=== PATIENT | female | born 1990 | race Caucasian/White ===

== ENCOUNTER 2016-04-23 19:37 | Inpatient (IN) | payer MEDICAID ==
[~2016-04-23 19:37] MED LIST: Dinoprostone* 10 MG VAG.SUPP VAGINAL ONE
[2016-04-24] MEDS ORDERED: Oxytocin in LR* 20 UNITS/1,000 ML BAG IVPB SCH ×2 (10:00→22:09)
[2016-04-24 10:03] LABS: Hematocrit 32 % (35-47); Hemoglobin 10.6 g/dl (12.0-16.0); Mean Corpuscular HGB Conc 33 g/dl (31-36); Mean Corpuscular Hemoglobin 27 pg (27-31); Mean Corpuscular Volume 83 fL (80-97); Mean Platelet Volume 8 um3 (7.4-10.4); Red Blood Count 3.87 10^6/ul (4.0-5.4); Red Cell Distribution Width 13 % (10.5-15); White Blood Count 13.5 10^3/ul (3.5-10.8)
[2016-04-24] MEDS ORDERED: fentaNYL* 50 MCG/ML 2 ML VIAL (100 MCG VIAL) ONE (19:45)
[2016-04-24] MEDS ORDERED: EPHEDrine (Pressors)* 50 MG/ML VIAL IV PUSH PRN (20:04)
[2016-04-24] MEDS ORDERED: Phenylephrine IV* 40 MCG/ML 10 ML SYRINGE IV PUSH PRN (20:04)
[2016-04-24] MEDS ORDERED: Sodium Citrate/Citric Acid* 15 ML UDC PO PRN (20:04)
[2016-04-24] MEDS ORDERED: Famotidine TAB* 20 MG PO PRN (20:04)
[2016-04-24] MEDS ORDERED: OBEPIDURAL* 250 ML EPIDURAL SCH (21:00)
[2016-04-24] MEDS ORDERED: oxyCODONE/Acetamin 5/325 MG* TAB PO PRN (22:06)
[2016-04-24] MEDS ORDERED: Glycerin ADULT SUPP PR PRN (22:06)
[2016-04-24] MEDS ORDERED: Witch Hazel PAD* JAR TOPICAL PRN (22:06)
[2016-04-24] MEDS: Ibuprofen TAB* 600 MG PO PRN (23:14)
[2016-04-25] MEDS: Acetaminophen TAB* 325 MG PO PRN ×3 (03:06→14:14)
[2016-04-25] MEDS: Ibuprofen TAB* 600 MG PO PRN ×3 (06:19→19:53)
[2016-04-25] MEDS: Docusate CAP* 100 MG PO SCH ×3 (08:42→19:53)
[2016-04-25 09:43] LABS: Hematocrit 31 % (35-47); Hemoglobin 9.9 g/dl (12.0-16.0); Mean Corpuscular HGB Conc 32 g/dl (31-36); Mean Corpuscular Hemoglobin 27 pg (27-31); Mean Corpuscular Volume 84 fL (80-97); Mean Platelet Volume 8 um3 (7.4-10.4); Red Blood Count 3.66 10^6/ul (4.0-5.4); Red Cell Distribution Width 13 % (10.5-15); White Blood Count 17.7 10^3/ul (3.5-10.8)
[2016-04-25] MEDS: Ferrous Gluconate TAB* 324 MG TAB PO SCH ×2 (10:00→19:53)
[2016-04-26] MEDS: Acetaminophen TAB* 325 MG PO PRN ×2 (00:53→07:56)
[2016-04-26] MEDS: Ibuprofen TAB* 600 MG PO PRN (04:40)
[2016-04-26 07:47] VITALS: BP 117/63
[2016-04-26] MEDS: Ferrous Gluconate TAB* 324 MG TAB PO SCH (07:56)
[2016-04-26] MEDS: Docusate CAP* 100 MG PO SCH (07:56)
== END 2016-04-26 10:18 | disposition home or self-care (01) | DRG 560 ==
LOC: MCHOBOUT 19:37 → MCHOB 19:43
PROVIDERS: ADMIT Midwife; ATTEND Midwife
PROC: 10E0XZZ Delivery of Products of Conception, External Approach (ICD-10-PCS; principal; 2016-04-24)
PROC: 10907ZC Drainage of Amniotic Fluid, Therapeutic from Products of Conception, Via Natural or Artificial Opening (ICD-10-PCS; 2016-04-24)
DX: O80 Encounter for full-term uncomplicated delivery (principal); Z88.2 Allergy status to sulfonamides; Z3A.39 39 weeks gestation of pregnancy; Z37.0 Single live birth
CPT/HCPCS: 36415; 85025; 85027; 86850; 86900; 86901; A9270-GY; J3010

== ENCOUNTER 2016-09-29 08:24 | Inpatient (IN) | payer MEDICAID, OTHER ==
--- NOTE | 2016-09-29 09:29 | RAD ---
Indication: Left fourth finger injury. 3 views of left fourth digit demonstrates flexion deformity at the proximal interphalangeal joint. Underlying fracture is not excluded. IMPRESSION: Flexion deformity proximal interphalangeal joint fourth digit.
--- NOTE | 2016-09-29 09:46 | ED ---
Upper Extremity Pain - HPI Summary HPI Summary: 25F presents with left ring finger pain. She [facility] an [facility] yesterday when she went to move a branch when she was mowing and it wouldn't move. She states she got a silver to the area and is unsure if she got it out. She had full ROM of her finger last night. This morning she has swelling along her flexor tendon and is tender there. There is no redness, warmth to the area. She is only able to partial flex and extend the joint. She has pain down the length of the finger. She is unsure if the sliver is still there. 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 - History of Current Complaint Chief Complaint: EDExtremityUpper Stated Complaint: LT HAND / FINGER COMPLAINT Time Seen by Provider: 09/29/16 08:39 - Allergies/Home Medications Allergies/Adverse Reactions: Allergies Allergy/AdvReac Type Severity Reaction Status Date / Time Sulfa Drugs Allergy Unknown Unknown Verified 09/29/16 08:43 Reaction Details PMH/Surg Hx/FS Hx/Imm Hx Endocrine/Hematology History: Denies: Hx Anticoagulant Therapy Cardiovascular History: Denies: Hx Hypertension Infectious Disease History: No Infectious Disease History: Denies: Traveled Outside the [place] in Last 30 Days - Family History Known Family History: Negative: Cardiac Disease - Social History Alcohol Use: None Substance Use Type: Reports: None Smoking Status (MU): Never Smoked Tobacco Review of Systems Negative: Fever Negative: Chest Pain Negative: Shortness Of Breath Positive: Edema - left ring finger All Other Systems Reviewed And Are Negative: Yes Physical Exam Triage Information Reviewed: Yes Vital Signs On Initial Exam: Initial Vitals Temp Pulse Resp BP Pulse Ox 97.2 F 97 16 81/54 97 09/29/16 08:27 09/29/16 08:27 09/29/16 08:27 09/29/16 08:27 09/29/16 08:27 Vital Signs Reviewed: Yes Appearance: Positive: Well-Appearing Skin: Positive: Warm, Dry Head/Face: Positive: Normal Head/Face Inspection Eyes: Positive: Normal, Conjunctiva Clear Respiratory/Lung Sounds: Positive: Clear to Auscultation, Breath Sounds Present Cardiovascular: Positive: Normal, RRR Musculoskeletal: Positive: Other - capillary refill<2 secs, good pulses, tender along flexor tendon with edema present there. no erythema present. pain with passive extension. unable to full extend and flex finger Diagnostics - Vital Signs Vital Signs Temp Pulse Resp BP Pulse Ox 09/29/16 08:27 97.2 F 97 16 81/54 97 - Laboratory Result Diagrams: 09/29/16 10:05 09/29/16 10:05 Lab Statement: Any lab studies that have been ordered have been reviewed, and results considered in the medical decision making process. Course/Dx - Course Course Of Treatment: 25F presents with left ring finger pain. She [facility] an [facility] yesterday when she went to move a branch when she was mowing and it wouldn't move. She states she got a silver to the area and is unsure if she got it out. She had full ROM of her finger last night. This morning she has swelling along her flexor tendon and is tender there. There is no redness, warmth to the area. She is only able to partial flex and extend the joint. She has pain with passive extension. xray normal. discussed with dr wynn who will see in ED. dr Wynn concerned for early flexor tenosynovitis and will take to OR - Diagnoses Differential Diagnosis/HQI/PQRI: Positive: Strain, Sprain, Other - flexor tenosynovitis Provider Diagnoses: Flexor tenosynovitis of finger - Physician Notifications Discussed Care of Patient With: Dr wynn Time Discussed With Above Provider: 09:52 - will see in ED Discharge - Discharge Plan Condition: Good Disposition: ADMITTED TO [facility]
[2016-09-29 10:13] LABS: Hematocrit 42 % (35-47); Hemoglobin 13.5 g/dl (12.0-16.0); Mean Corpuscular HGB Conc 32 g/dl (31-36); Mean Corpuscular Hemoglobin 27 pg (27-31); Mean Corpuscular Volume 84 fL (80-97); Mean Platelet Volume 9 um3 (7.4-10.4); Red Blood Count 4.98 10^6/ul (4.0-5.4); Red Cell Distribution Width 14 % (10.5-15); White Blood Count 9.1 10^3/ul (3.5-10.8)
[2016-09-29 10:28] LABS: Albumin 4.6 g/dL (3.2-5.2); BUN/Creatinine Ratio 17.6 (8-20); EGFR African American 134.5 (>60); EGFR Non-African American 104.6 (>60); Total Bilirubin 0.5 mg/dL (0.2-1.0); Total Protein 7.6 g/dL (6.4-8.9)
[2016-09-29] MEDS ORDERED: Morphine INJ* 2 MG/ML 1 ML SYRINGE IV PRN (11:44)
[2016-09-29] MEDS ORDERED: diPHENhydraMINE IV* 50 MG/ML 1 ml VIAL (BENADRYL) IV PRN (11:44)
[2016-09-29] MEDS ORDERED: Ondansetron TAB* 4 MG PO PRN (11:44)
[2016-09-29] MEDS ORDERED: oxyCODONE/Acetamin 5/325 MG* TAB PO PRN (11:44)
[2016-09-29 12:21] LABS: Manual Entry Verification AS; UR Preg Internal Control QC Line Present; UR Preg Kit Lot# 7010135
[2016-09-29] MEDS ORDERED: ceFAZolin 2 GM PREMIX(*) 2 GM/50 ML BAG IVPB ONE (12:33)
[2016-09-29] MEDS ORDERED: Metoclopramide IV* 5 MG/ML 2 ML VIAL ONE (12:51)
[2016-09-29] MEDS ORDERED: Famotidine IV* 10 MG/ML 2 ML (20 mg) ONE (12:51)
--- NOTE | 2016-09-29 13:32 | HP ---
HISTORY AND PHYSICAL: DATE OF ADMISSION: 09/29/16 REASON FOR ADMISSION: Left ring finger infected flexor tenosynovitis. 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 The patient has never had any difficulties with that left ring finger previously. On the night of 09/28/16 at approximately 6 p.m., the patient was clearing some branches and a small piece of branch or twig got stuck in the patient's left ring finger. Patient removed it. She was unsure if it was a jabari or what type of plant anatomy it was. The patient described the castanon as one bearing small red berries. Several hours later, the patient noticed some swelling and pain in a flexed posture of that left ring finger. Patient was concerned enough that she almost went to [facility] the night of the injury. Instead she waited until this morning. Patient's pain and swelling increased and she noticed some skin erythema. Therefore, the patient presented to the emergency department. There were no other injuries associated with the event on 09/28/16. Patient describes no fever, sweats, chills. No numbness or tingling left ring finger or elsewhere. No other joint pain. PAST MEDICAL HISTORY: Kidney infections, unknown source, not necessarily related to the urinary tract according to the patient. PAST SURGICAL HISTORY: Appendectomy, tonsillectomy. MEDICATIONS: None. ALLERGIES: SULFA (assumed, patient has a significant family history of SULFA allergies and so she has avoided SULFA drugs). REVIEW OF SYSTEMS: No fever, sweats, chills. No other joint pain. Denies any drainage from the area where the foreign body had been present. PHYSICAL EXAMINATION GENERAL: No acute distress, alert and oriented x3, appropriate mood and affect , appropriate dress and hygiene. Gait was not assessed as the patient was sitting with her 5-month-old in her lap. Well coordinated bilateral upper and lower extremities. Patient is nontoxic appearing. She is comfortable. Patient has an older child roaming around the emergency department room and a 5- month-old sleeping comfortably on her lap. VITAL SIGNS: Temperature 97.3 degrees Fahrenheit, pulse 87, blood pressure 100/ 56, respirations 15, and O2 sat 99% on room air. EXTREMITIES: Examination of the patient's left upper extremity reveals no palpable lymphadenopathy, axilla or epitrochlear. No lymphangitic streaking. Left ring finger exam demonstrates visible soft tissue swelling about the ring finger overlying the proximal and middle phalanges of the left ring finger. The ring finger is clearly in a prominently flexed posture. Positive pain with passive extension of that finger. Tenderness to palpation along the flexor tendon sheath from just proximal to A0 to the level of the DIP joint flexor crease, skin. I would not describe the soft tissue swelling as fusiform of the left ring finger. There is some faint erythema now about the volar, radial and ulnar aspect of the skin overlying the proximal phalanx of that left ring finger. There is a barely visible punctate hole in the skin on the volar surface of the finger at the level of the MP flexor skin crease, more ulnar than radial. No drainage. No pain with passive range of motion of the metacarpophalangeal joint. I repeated this multiple times and no discomfort whatsoever. NEURO: Neurovascularly intact distally. Sensation fully intact radial and ulnar aspect of the left ring finger and cap refill less than 2 seconds. LABORATORY DATA: White blood cell count 9.1. CRP 7.23. INR is 0.91. IMAGING: X-rays of the left ring finger, three, were obtained on the date of admission. X-rays show no fracture, dislocation, significant degenerative changes or metallic foreign body. ASSESSMENT: Left ring finger flexor tenosynovitis, infected, early. PLAN: 1. I discussed the diagnosis with the patient. Although she is afebrile with normal white count and a just slightly elevated CRP, her physical exam is consistent with infected flexor tenosynovitis and the aggressive trajectory of her symptoms starting with the injury just over 12 hours ago, suspects a more aggressive infection. 2. We briefly discussed nonoperative versus operative management. Some sources do describe treatment of early flexor tenosynovitis with IV antibiotics only. However, the irrigation and debridement is a more thorough and aggressive solution to eradicate infection and prevent long-term damage to the flexor tendons. 3. The patient's last meal was coffee and cereal at 6 a.m. this morning. Therefore, we will wait 6 hours until 2 p.m. to perform the procedure. 4. The patient will be admitted to me. She will be continued NPO. We will hold IV antibiotics for now in order to obtain most accurate intraoperative cultures. 5. To the operating room for open left ring finger flexor tendon sheath irrigation, incision and debridement. Two-incision technique. 6. I asked for the emergency department staff to obtain an ultrasound overlying the skin compromise to look for a non-metallic foreign body, which I could remove at the time of surgery. 7. My plan is for IV antibiotics intraoperatively and postoperatively. The patient will be seen by Infectious Disease on postoperative day 1 in the morning , 09/30/16, to establish an antibiotic regimen, IV versus oral, moving forward. I discussed with the patient some initial timeline for her return to work and for wearing of the splint. 8. I will obtain a surgical consent and discussed benefits, risks, and potential complications, principally nerve or blood vessel injury, recurrence of infection, and flexor tendon rupture. [id number] #: [id number] MTDD
[2016-09-29] MEDS ORDERED: Lidocaine 2% PF * 5 ML VIAL ONE (13:38)
[2016-09-29] MEDS ORDERED: Propofol* 10 MG/ML 20 ML BTL IV PUSH ONE (13:38)
[2016-09-29] MEDS ORDERED: fentaNYL* 50 MCG/ML 2 ML VIAL (100 MCG VIAL) ONE ×2 (13:53→14:26)
[2016-09-29] MEDS ORDERED: Vancomycin(*) 1,000 MG in NS 0.9% 250 ML* 250 ML IVPB ONE (14:00)
[2016-09-29] MEDS ORDERED: fentaNYL* 50 MCG/ML 2 ML VIAL (100 MCG VIAL) IV PRN (14:01)
[2016-09-29] MEDS ORDERED: oxyCODONE TAB* 5 MG TAB PO PRN (14:01)
[2016-09-29] MEDS ORDERED: PROCHLORPERAZINE INJ 5 MG/ML 2 ML VIAL IV PRN (14:01)
[2016-09-29] MEDS ORDERED: HYDROcodone/ACETAMIN 5-325 MG* 1 TAB PO PRN (14:01)
--- NOTE | 2016-09-29 14:03 | RAD ---
Indication: Evaluate for foreign body. Real-time sonography of the left fourth digit is reviewed. There is no evidence of foreign body identified in the region of the fourth digit. IMPRESSION: No foreign body is identified.
[2016-09-29] MEDS ORDERED: Bupivacaine 0.5% SDV PF* 30 ML VIAL ONE (14:26)
[2016-09-29] MEDS ORDERED: Ketorolac INJ* 30 MG/ML 1 ML VIAL ONE (14:48)
[2016-09-29] MEDS ORDERED: PROCHLORPERAZINE INJ 5 MG/ML 2 ML VIAL ONE (15:44)
[2016-09-29] MEDS: NS 0.9% 1000 ML* 1,000 ML IV SCH (16:56)
[2016-09-29] MEDS ORDERED: Ondansetron INJ* 2 MG/ML VIAL ONE (18:05)
[2016-09-29] MEDS: Acetaminophen TAB* 325 MG PO PRN (18:11)
--- NOTE | 2016-09-30 00:31 | OP ---
DATE OF OPERATION: 09/28/16 - ROOM #332 DATE OF : 88 SURGEON: Filiberto Cunha MD CLEANING PROFESSIONAL: CLAU Lee ANESTHESIOLOGIST: Timbo Lorenzo MD ANESTHESIA: General anesthesia, local anesthesia. PRE-OP DIAGNOSIS: Left ring finger flexor tendon sheath infection. POST-OP DIAGNOSIS: Left ring finger flexor tendon sheath infection. OPERATIVE PROCEDURE: Incision, irrigation, and debridement, left ring finger flexor tendon sheath. IV FLUIDS: 1250 cc lactated Ringer's. ANTIBIOSIS: 1 g vancomycin, given after cultures were obtained. TOURNIQUET TIME: 29 minutes at 250 mmHg. COMPLICATIONS: None. ESTIMATED BLOOD LOSS: Minimal. SPECIMENS: Culture swabs x2, aerobic and anaerobic. 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 While the patient did not have fever, sweats, or chills and had a normal white blood cell count and a CRP of 7, she had 3 and then 4 of Kanavel's sign. She had a left ring finger in a flexed posture , pain with passive extension of the left ring finger, tenderness to palpation along the flexor tendon sheath. At my second exam when I went to consent her, she had more fusiform swelling. I held the antibiotics IV for 3 hours until the patient was appropriate for surgery, at that point 6 hours after having eaten and drank. DESCRIPTION OF PROCEDURE: Preoperative written consent. We had discussed benefits, risks, and potential complications of procedure in detail. I said expectations for the patient requiring IV antibiotics postoperatively and her being required to stay inhouse until we saw some clinical improvement that would make us comfortable switching her to oral antibiotics. The operative finger was marked in preoperative holding. The patient was taken back to the operating room and maintained on the stretcher. She was sedated and LMA was placed. A hand table was attached. Tourniquet was placed around the upper arm, left. The left upper extremity was prepped and draped. Surgical time-out was performed. I elevated tourniquet without Esmarch. Started skin incision and there was some bleeding. I, therefore, dropped the tourniquet, applied the Esmarch and reelevated the tourniquet. The total tourniquet time initially before I dropped it was less than 1 minute. With the tourniquet reelevated, I continued my longitudinal incision overlying the A1 roxanne in the volar hand. Approximately 1 to 1.5 cm skin incision was made. Dissection through subcutaneous tissue was done with scissors and then done with Ragnell retractors , using them as dissection tools. I then placed a cricket retracting medial and lateral and Ragnell's proximal and distal. Sponge was used to clean off the flexor tendon sheath. Excellent view of flexor tendon sheath. I viewed the A1 roxanne and the A2 roxanne. At this point, there was no pus or foreign body visible. Incised A1 flexor tendon sheath with a 15 blade. I followed this by releasing it proximal and then distal with dissection scissors. As I did this release, pus emanated from the flexor tendon sheath. I got 2 sets of culture swabs, aerobic and anaerobic of this fluid. After cultures had been obtained, vancomycin 1 g IV was started. With the bulb syringe, I irrigated the surgical field and passively flexed and extended the finger to milk some of that pus out. Was satisfied with my proximal and distal release of A1 roxanne. Removed instruments from the surgical wound. Next, I turned my attention towards the distal fingertip, left ring finger. I made a midline volar incision from the DIP skin flexion crease, approximately 1 to 1.5 cm in length running distally. A 15 blade was used to make the skin incision. Spreading dissection using scissors down to tendon. The flexor tendon was well visible and flexor tendon sheath itself was not significantly thick at this level. I made sure to release the flexor tendon sheath just proximal to the wound, including part of the A5 roxanne. Went back to the first incision and inserted an 18-gauge Angiocath. Connected that to tubing and 2 syringes, 30 cc, and I irrigated through that proximal wound. Significant amount of the fluid was leaving through the distal surgical incision site, satisfying my requirement that the fluid be flushed all the way through the tendon sheath. Some of the fluid also backed out proximally, as expected. I flushed several 100 cc through that 18-gauge short angiocatheter. Then, I switched it up and I used a longer 16-gauge angiocatheter and continued irrigating. Total volume of irrigant used was at least 250 cc. I did not explore the site of the skin puncture, at the level of the MP flexion crease as it did essentially completely healed. Deep to that, I irrigated well and never saw a clear foreign body. I did not see clear puncture through the flexor tendon sheath or any flexor pulling. Irrigation of proximal wound with bulb syringe. Wounds were dried. Some packing with Iodoform, short amount was placed in the proximal surgical wound. A simple skin stitch using monofilament and nylon 4-0 suture was placed, one in the proximal wound and one in the distal wound. This affected a loose closure, which was my intention. The tourniquet was dropped. There was a tiny amount of bleeding, but not significant from each wound. Xeroform was placed over both surgical incision closures followed by 2x2 's, followed by Kerlix, followed by narrow Coban. Drapes were taken down. A one-step volar splint with the hand in a position of comfort and the fingers fully extended was placed with an Prince bandage overwrap. The patient was awakened and extubated and transferred to the PACU. DISPOSITION: The patient will receive vancomycin 1 g IV q.12 hours. I am okay with the first dose being at 6 a.m. tomorrow morning, first dose postoperative for scheduling purposes. The patient can receive pain medication as needed. We will await culture sensitivities and adjust antibiotics appropriately. I had spoken with Dr. Ayers of infectious disease service preoperatively and he had requested vancomycin rather than Ancef. I spoke with the patient's and described the procedure and reiterated that I believe that the patient would be an inpatient for at least 2 to 3 days postoperatively, so that we have culture sensitivities and the patient's physical exam improve sufficiently, so that we are comfortable sending her home on oral antibiotics. On postoperative day 2, I will likely take down the splint , remove the packing, and let the patient start moving that hand. [id number] #: [id number] MTDD
[2016-09-30] MEDS: Ondansetron INJ* 2 MG/ML VIAL IV PRN ×3 (01:51→17:01)
[2016-09-30] MEDS: NS 0.9% 1000 ML* 1,000 ML IV SCH ×2 (01:51→14:42)
[2016-09-30] MEDS: Vancomycin(*) 1,000 MG in NS 0.9% 250 ML* 250 ML IVPB SCH ×2 (05:36→18:55)
[2016-09-30 06:51] LABS: Hematocrit 36 % (35-47); Hemoglobin 11.8 g/dl (12.0-16.0); Mean Corpuscular HGB Conc 33 g/dl (31-36); Mean Corpuscular Hemoglobin 28 pg (27-31); Mean Corpuscular Volume 83 fL (80-97); Mean Platelet Volume 9 um3 (7.4-10.4); Red Blood Count 4.26 10^6/ul (4.0-5.4); Red Cell Distribution Width 14 % (10.5-15)
[2016-09-30] MEDS: Acetaminophen TAB* 325 MG PO PRN ×2 (08:56→17:00)
--- NOTE | 2016-09-30 09:30 | PN ---
Progress Note - Progress Note Date of Service: 09/30/16 SOAP: Subjective: []Patient seen at bedside. c/o mild to moderate finger pain this am. Splint feeling restrictive on the rest of the hand. Denies paresthesias of any digits. Denies N/V. Objective: [] Vital Signs Temp 98.0 F 09/30/16 07:35 Pulse 85 09/30/16 07:35 Resp 16 09/30/16 08:31 BP 103/61 09/30/16 07:35 Pulse Ox 99 09/30/16 07:35 Intake & Output 09/29/16 09/30/16 09/30/16 18:59 06:59 18:59 Intake Total 2404 1375 Output Total 200 1675 Balance 2204 -300 Weight 170 lb Intake: IV Fluids 2404 270 LR 1250 NS 250ML, Vancomycin 250 1000MG IVPB 55 Oral 1050 Output: Urine 200 1175 Emesis 500 Other: Estimated Blood Loss MIN Comment Laboratory Results - last 24 hr 09/29/16 09/29/16 09/29/16 10:05 10:05 10:05 WBC 9.1 RBC 4.98 Hgb 13.5 Hct 42 MCV 84 MCH 27 MCHC 32 RDW 14 Plt Count 238 MPV 9 Neut % (Auto) 62.7 Lymph % (Auto) 29.2 [place] % (Auto) 5.7 Eos % (Auto) 1.1 Baso % (Auto) 1.3 Absolute Neuts (auto) 5.7 Absolute Lymphs (auto) 2.7 Absolute Monos (auto) 0.5 Absolute Eos (auto) 0.1 Absolute Basos (auto) 0.1 Absolute Nucleated RBC 0 Nucleated RBC % 0 INR (Anticoag Therapy) 0.91 Sodium 135 Potassium 4.0 Chloride 107 Carbon Dioxide 23 Anion Gap 5 BUN 12 Creatinine 0.68 Est GFR ( Amer) 134.5 Est GFR (Non-Af Amer) 104.6 BUN/Creatinine Ratio 17.6 Glucose 89 Lactic Acid Calcium 10.0 Total Bilirubin 0.50 AST 23 ALT 35 Alkaline Phosphatase 90 C-Reactive Protein C-React Prot High Sens 7.23 Total Protein 7.6 Albumin 4.6 Globulin 3.0 Albumin/Globulin Ratio 1.5 Urine Test 09/29/16 09/29/16 09/30/16 10:05 12:15 06:29 WBC 6.0 RBC 4.26 Hgb 11.8 L Hct 36 MCV 83 MCH 28 MCHC 33 RDW 14 Plt Count 194 MPV 9 Neut % (Auto) Lymph % (Auto) [place] % (Auto) Eos % (Auto) Baso % (Auto) Absolute Neuts (auto) Absolute Lymphs (auto) Absolute Monos (auto) Absolute Eos (auto) Absolute Basos (auto) Absolute Nucleated RBC Nucleated RBC % INR (Anticoag Therapy) Sodium Potassium Chloride Carbon Dioxide Anion Gap BUN Creatinine Est GFR ( Amer) Est GFR (Non-Af Amer) BUN/Creatinine Ratio Glucose Lactic Acid 0.8 Calcium Total Bilirubin AST ALT Alkaline Phosphatase C-Reactive Protein C-React Prot High Sens Total Protein Albumin Globulin Albumin/Globulin Ratio Urine Test Negative 09/30/16 06:29 WBC RBC Hgb Hct MCV MCH MCHC RDW Plt Count MPV Neut % (Auto) Lymph % (Auto) [place] % (Auto) Eos % (Auto) Baso % (Auto) Absolute Neuts (auto) Absolute Lymphs (auto) Absolute Monos (auto) Absolute Eos (auto) Absolute Basos (auto) Absolute Nucleated RBC Nucleated RBC % INR (Anticoag Therapy) Sodium Potassium Chloride Carbon Dioxide Anion Gap BUN Creatinine Est GFR ( Amer) Est GFR (Non-Af Amer) BUN/Creatinine Ratio Glucose Lactic Acid Calcium Total Bilirubin AST ALT Alkaline Phosphatase C-Reactive Protein < 1.00 C-React Prot High Sens Total Protein Albumin Globulin Albumin/Globulin Ratio Urine Test Microbiology 09/29/16 15:30 Gram Stain - Final Finger - Ring Left Left UE volar splint 2nd-5th digits, left ring finger dressed with gauze and coban. Sensation intact throughout. Assessment: []s/p I&D left ring finger flexor tenosynovitis POD #1 Plan: []Splinting and IV Vanco 1 gm q12 h per Dr. uCnha ? Home 10/01
[2016-09-30] MEDS: Ibuprofen TAB* 800 MG PO SCH ×2 (11:42→18:54)
[2016-10-01] MEDS: Ibuprofen TAB* 800 MG PO SCH ×3 (00:40→11:27)
[2016-10-01] MEDS: NS 0.9% 1000 ML* 1,000 ML IV SCH (02:32)
[2016-10-01 06:06] LABS: Hematocrit 36 % (35-47); Hemoglobin 11.8 g/dl (12.0-16.0); Mean Corpuscular HGB Conc 33 g/dl (31-36); Mean Corpuscular Hemoglobin 27 pg (27-31); Mean Corpuscular Volume 83 fL (80-97); Mean Platelet Volume 8 um3 (7.4-10.4); Red Blood Count 4.28 10^6/ul (4.0-5.4); Red Cell Distribution Width 14 % (10.5-15); White Blood Count 4.7 10^3/ul (3.5-10.8)
[2016-10-01] MEDS: Vancomycin(*) 1,000 MG in NS 0.9% 250 ML* 250 ML IVPB SCH (06:11)
--- NOTE | 2016-10-01 07:27 | PN ---
Progress Note - Progress Note Date of Service: 10/01/16 SOAP: Subjective: No pain, numbess, or tingling Objective: Left ring finger - NVID - decreased swelling, erythema - tolerated full passive extension - only trace ache with palpation of flexor tendon along hand and finger Microbiology 09/29/16 15:30 Finger - Ring Left Gram Stain - Final 09/29/16 15:30 Misc Source (See Comment) - Finger Anaerobic Culture - Preliminary No Growth Day 1 09/29/16 15:30 Finger - Ring Left Wound Culture - Preliminary No Growth Day 1 Selected Entries 10/01/16 03:57 Temperature 97.6 F Pulse Rate 64 Respiratory 16 Rate Blood Pressure 103/56 (mmHg) O2 Sat by Pulse 99 Oximetry Laboratory Tests 09/29/16 09/30/16 09/30/16 10:05 06:29 06:29 WBC 9.1 6.0 C-Reactive Protein < 1.00 10/01/16 10/01/16 05:47 05:47 WBC 4.7 C-Reactive Protein 19.99 H Assessment: POD 2 I&D L ring finger flexor tendon sheath Plan: - Change her to Ancef 1gm IV q 8 hrs given NGTD, no MRSA - I will try to discuss with Armen, but if continued improvement on Ancef today, possible discharge this afternoon on PO abx - Warm sopay soak x 15 minutes then nursing will redress wound with DSD - I removed packing from proximal incision - Told patient to move fingers to prevent stiffness
[2016-10-01] MEDS: ceFAZolin VIAL(*) 1 GM in NS 0.9% 50 ML* 50 ML IVPB SCH ×2 (08:16→15:51)
--- NOTE | 2016-10-01 14:10 | DS ---
DISCHARGE SUMMARY: DATE OF ADMISSION: 09/29/16 DATE OF DISCHARGE: 10/01/16 ATTENDING PHYSICIAN: Filiberto Cunha MD ADMISSION DIAGNOSIS: Left ring finger flexor tendon sheath infection. DISCHARGE DIAGNOSIS: Left ring finger flexor tendon sheath infection. SURGERY PERFORMED: Incision, irrigation and debridement, left ring finger flexor tendon sheath. HOSPITAL COURSE: The patient is a 25-year-old female who is right handed, who presented to the emergency department on the morning of 09/29/16 with left ring finger pain, swelling and inability to extend her finger actively. She injured her finger while trying to move a branch out of her way while mowing a lawn on the evening of 09/28/16. Due to the fact that she had a significant worsening of her symptoms in a short time and was unable to extend her finger actively and had significant flexor tendon pain, Dr. Cunha felt that it was best that she have the area incised, evaluated and cleaned out in the operating room. She elected to proceed and was taken to the operating room for the aforementioned procedure on the date of 09/29/16. She tolerated the procedure well and left the operating room in stable condition. Postoperatively, she was placed on IV vancomycin and was then changed to IV Ancef as her cultures showed no growth of MRSA. She had no postoperative complications and had these fingers soaked twice daily with warm soapy water and did see improvement postoperative day #1. It was felt that she was stable orthopedically for discharge to home on 10/01/16 in the afternoon after receiving her second dose of IV Kefzol. CONDITION ON DISCHARGE: The patient is afebrile. Her vital signs are stable. Her left fourth finger is improved with less tenderness over the flexor tendon and ability to passively have the finger extended. Her sensation and circulation are grossly intact. PLAN: Discharge to home. The patient does not do well with narcotic pain medications and would like to only take Tylenol or ibuprofen, which she has both at home. We recommend Keflex 500 mg p.o. four times a day x2 weeks. She will follow up with Dr. Cunha in the office on Wednesday10/05/16 for evaluation. She will continue with soaks in warm soapy water twice daily and will apply a light dressing to the finger to protect the incisions. If she has increased pain, increased swelling, redness, drainage, fever, chills, the office will be contacted prior to her scheduled appointment on 10/05/16. CLAU LOONEY [id number]/[facility] #: [id number] TORI
[2016-10-01 15:30] VITALS: BP 104/59
== END 2016-10-01 16:35 | disposition home or self-care (01) | DRG 316 ==
LOC: ED 08:24 → SSU 11:10 → OBSVTOIN 09-30 10:53
PROVIDERS: ADMIT Orthopaedic Surgery; ATTEND Orthopaedic Surgery
PROC: 0JDK0ZZ Extraction of Left Hand Subcutaneous Tissue and Fascia, Open Approach (ICD-10-PCS; principal; 2016-09-29 14:00)
DX: M65.142 Other infective (teno)synovitis, left hand (principal); Z88.2 Allergy status to sulfonamides
CPT/HCPCS: 36415; 73140; 80053; 81025; 83605; 85025; 85027; 85610; 86140; 86141; 87070; 87073; 87205; 93005; A9270-GY; G0378; J0690; J0780; J1885; J2405; J2704; J3010; J3370

== ENCOUNTER 2016-10-05 15:16 | Emergency (ER) | payer OTHER ==
[2016-10-05 16:45] LABS: Hematocrit 38 % (35-47); Hemoglobin 12.4 g/dl (12.0-16.0); Mean Corpuscular HGB Conc 33 g/dl (31-36); Mean Corpuscular Hemoglobin 27 pg (27-31); Mean Corpuscular Volume 83 fL (80-97); Mean Platelet Volume 8 um3 (7.4-10.4); Red Blood Count 4.58 10^6/ul (4.0-5.4); Red Cell Distribution Width 13 % (10.5-15); White Blood Count 12.6 10^3/ul (3.5-10.8)
[2016-10-05] MEDS ORDERED: HYDROcodone/ACETAMIN 5-325 MG* 1 TAB PO ONE (16:55)
[2016-10-05] MEDS ORDERED: Ketorolac INJ* 60 MG/2 ML VIAL IM ONE (16:55)
[2016-10-05 16:56] LABS: BUN/Creatinine Ratio 11.3 (8-20); Calcium 9.1 mg/dL (8.6-10.3); EGFR Non-African American 99.5 (>60); Potassium 3.5 mmol/L (3.5-5.0)
[2016-10-05 16:57] LABS: UR Preg Internal Control QC Line Present
[2016-10-05] MEDS ORDERED: Ketorolac INJ* 30 MG/ML 1 ML VIAL ONE (17:11)
[2016-10-05] MEDS ORDERED: Ketorolac INJ* 30 MG/ML 1 ML VIAL IV PUSH ONE ×2 (17:14→22:00)
[2016-10-05] MEDS ORDERED: Ondansetron INJ* 2 MG/ML VIAL IV ONE ×2 (17:15→21:29)
[2016-10-05] MEDS: NS 0.9% 1000 ML* 2,000 ML IV ONE (18:03)
[2016-10-05 18:32] LABS: Urine Bilirubin Negative (Negative); Urine Glucose Negative (Negative); Urine Nitrite Negative (Negative)
[2016-10-05 18:52] LABS: Urine Bacteria Absent (Absent)
[2016-10-05 19:04] LABS: Albumin 4.2 g/dL (3.2-5.2); Direct Bilirubin 0.1 mg/dL (0.03-0.18); Globulin 2.7 g/dL (2-4); Indirect Bilirubin 0.4 mg/dL (0.3-1.0); Total Bilirubin 0.5 mg/dL (0.2-1.0); Total Protein 6.9 g/dL (6.4-8.9)
--- NOTE | 2016-10-05 20:35 | RAD ---
CLINICAL HISTORY: Bilateral flank pain. Surgical history includes appendectomy. COMPARISON: Pelvic ultrasound dated January 28, 2011 TECHNIQUE: Noncontrast CT examination of the abdomen and pelvis from the lung bases through the initial tuberosities. FINDINGS: VISUALIZED LUNG BASES: The visualized lung bases are grossly clear. There is no pleural effusion. ABDOMEN AND PELVIS: Evaluation of the solid organs and vasculature is limited without intravenous contrast. The liver, pancreas and adrenal glands are grossly normal in appearance. The gallbladder is normal. The otherwise normally attenuating spleen measures 13.5 cm in greatest axial dimension. At the posterior aspect of the left renal cortex (image 45 of 201) there is a 5 mm calcification. The kidneys are otherwise normal in appearance without focal mass, calcification or signs of hydronephrosis. The small and large bowel are not distended. Surgical material seen in the base of the cecum consistent with the patient's surgical history of appendectomy. There is no retroperitoneal adenopathy. On the coronal plane images there are top normal and mildly enlarged mesenteric lymph nodes measuring up to 1 cm in short axis diameter (for example coronal image 32). The pelvic viscera is normal in appearance. The abdominal aorta and iliac arteries are normal in course and diameter. There are no sinister bone lesions. Overlying the subcutaneous fat at the superior right lateral gluteal region (axial image 118 of 201) there is an 8 mm focus of induration with a smaller focus of low-attenuation, either pure fat or air. IMPRESSION: 1. At the posterior left renal cortex there is a 5 mm calcification but no calculi are seen in either collecting system, nor is there any sign of hydronephrosis. 2. Diffuse top normal and mildly enlarged mesenteric lymph nodes that do not exhibit any specific focality and mild splenomegaly in an otherwise normal-appearing spleen. Please correlate to signs and symptoms of systemic infection or other diffuse reactive process. 3. Mixed attenuation 8mm focus in the subcutaneous tissue overlying the lateral superior gluteal region subcutaneous fat of doubtful clinical significance.
[2016-10-05] MEDS ORDERED: Ondansetron INJ* 2 MG/ML VIAL ONE (21:25)
[2016-10-05] MEDS ORDERED: Ciprofloxacin 400MG IVPREMIX(* 400 MG/200 ML BAG IVPB ONE (22:02)
[2016-10-05] MEDS ORDERED: metroNIDAZOLE IV 500 MG/100ML* 500 MG/100 ML BAG IVPB ONE (22:03)
[2016-10-06 00:14] VITALS: BP 95/49
[2016-10-06] MEDS ORDERED: Ondansetron ODT TAB* 4 MG PO ONE (00:26)
--- NOTE | 2016-10-06 01:48 | CONS ---
CONSULTATION REPORT: DATE OF CONSULT/DICTATION: 10/05/16 - EMERGENCY DEPT PRIMARY CARE PHYSICIAN: The patient does not have a primary care physician. CHIEF COMPLAINT: Abdominal pain and diarrhea. HISTORY OF PRESENT ILLNESS: This is a 25-year-old female with an unremarkable past medical history, who presented to the emergency room with 1-day abdominal pain, low back pain, fever, diarrhea, and headache. The patient was recently treated for washout for her tenosynovitis and had been on Keflex. She stated last evening, she developed watery diarrhea with lower abdominal pain, fever, diarrhea, and headache. She denies any urinary symptoms. She has been nauseous , but no vomiting. She states her son had a GI bug last weekend. She has no urinary symptoms. No vaginal discharge. No rash. No recent travel. Otherwise , remaining review of systems is negative. She did see her orthopedic, Dr. Cunha, in followup today and everything was looking fine with her tenosynovitis. In the emergency room, the patient had labs, imaging. She was given IV fluids, Zofran, Flagyl, Toradol, and Cipro and was referred to the hospitalist service for evaluation for admission. Otherwise, remaining review of systems is negative. PAST MEDICAL HISTORY: 1. Tenosynovitis, status post washout on 09/29/16, followed by Dr. Cunha. 2. History of pyelonephritis. 3. History of appendectomy and tonsillectomy. MEDICATIONS: 1. Keflex 500 mg 4 times a day x2 weeks. 2. Ibuprofen 200 mg every 6 hours as needed. 3. Tylenol 650 mg every 6 hours as needed. ALLERGIES: SULFA. FAMILY HISTORY: Her mother has Crohn's and is an addict. Her father has a history of coronary artery disease. SOCIAL HISTORY: The patient lives at home with her and 2 children, ages 5 months and 3 years. No tobacco, alcohol, or illicit drug use. 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 REVIEW OF SYSTEMS: A 14-point review of systems was reviewed. Pertinent positives and negatives are mentioned in the HPI, otherwise remaining review of systems negative. PHYSICAL EXAM: Vitals: Temp is 100.6, pulse rate is 91, respiratory rate 69, oxygen saturation 100% on room air, blood pressure 106/58. General: Mildly ill - appearing. Head normocephalic. Pupils are equal, reactive, anicteric. Oropharynx: Mucous membranes moist. Neck: Supple. No lymphadenopathy. Cardiac: Regular rate and rhythm. No murmurs, rubs, or gallops. Respiratory: Clear to auscultation. No wheezes, rhonchi, or rales. No CVA tenderness. The patient with lower bilateral lumbar tenderness. Abdomen: Positive bowel sounds. Soft, nondistended. She has some suprapubic lower abdominal tenderness. No rebound, no guarding. Extremities: No clubbing, no cyanosis, or edema. +2 DPs. Neurologic: Alert and oriented x3. No focal neurologic deficits. DIAGNOSTIC STUDIES/LAB DATA: Laboratory data: White count 12.6, hemoglobin 12.4, hematocrit 38, platelets 230. Sodium 136, potassium 3.5, chloride 107, bicarb 20, BUN 8, creatinine 0.71, glucose 102. Urinalysis: 1+ proteins, +2 ketones, +1 blood, trace squamous cells. Radiographic Data: At the posterior left renal cortex, there is a 5 mm calcification, but no calculi are seen in either collecting system nor is there any sign of hydronephrosis, and normal mildly enlarged mesenteric lymph nodes that did not exhibit any specific focality and mild splenomegaly and an otherwise normal-appearing spleen, please correlate with signs and symptoms of systemic infection or diffuse reactive process. Next, attenuation, 8-mm of focus in the subcutaneous tissue overlying the lateral superior gluteal region, subcutaneous fat of doubtful clinical significance. ASSESSMENT: This is a 25-year-old female, who presents with 1 day of fever, abdominal pain, diarrhea, and headache. Assessment: The patient is able to tolerate fluids. She is drinking nir margarita and saltines. She has continued to have diarrhea. I discussed admission for supportive care with IV fluids, antiemetic, but I suspect that her diagnosis is gastroenteritis and the CAT scan reflects these findings. No indication for antibiotics. The patient would like to go home. I discussed encouraging plenty of fluids, anti-nausea medication, and pain control with ibuprofen and Tylenol. I did tell her if her symptoms persist or worsen or if she is unable to tolerate p.o. that she should return to the emergency room and that she needs to establish care with a primary care physician and for follow up of her mild splenomegaly. I discussed my recommendation with Dr. Rice, who is planning to discharge her home from the emergency room. PATIENT TIME: Greater than 60 minutes spent doing the consultation, more than half the time spent in direct patient contact. [id number]/[facility] #: [id number] TORI
--- NOTE | 2016-10-06 07:49 | RAD ---
HISTORY: Right adnexal tenderness COMPARISONS: January 28, 2011 TECHNIQUE: Multiple transverse and longitudinal ultrasound images were obtained of the pelvis using grayscale, color Doppler, and spectral Doppler imaging using the endovaginal transducer. FINDINGS: UTERUS: The uterus measures 6.7 x 3.1 x 5.1 cm. The uterus is normal in shape, size, contour, and echotexture. ENDOMETRIUM: The endometrial stripe is smooth. The endometrium measures 2.3 cm in thickness. CUL-DE-SAC: There is no free fluid within the cul-de-sac. RIGHT OVARY: The right ovary measures 3.4 x 3 x 1.9 cm. Multiple follicles are noted. Normal arterial and venous waveforms are identifiable within the ovary on spectral Doppler imaging. LEFT OVARY: The left ovary measures 3.8 x 2.6 x 2.1 cm. Multiple follicles are noted. ] A moderate flow BLADDER: The bladder is not well visualized. IMPRESSION: NO ACUTE SONOGRAPHIC PATHOLOGY OF THE VISUALIZED PORTION OF THE PELVIS. NO SONOGRAPHIC FEATURES OF TORSION. PLEASE NOTE THAT PARTIAL OR INTERMITTENT TORSION MAY BE SONOGRAPHICALLY NORMAL.
--- NOTE | 2016-10-07 16:14 | ED ---
Progress - Progress Note Progress Note: Dr. Rice spoke with Dr. Cuello, who evaluated the pt. She recommended the discharge of the pt. She is diagnosed with gastroenteritis and dehydration. She is tolerating PO fluids well. There is no abdominal tenderness at the time of discharge. She was referred to follow up with [facility] referral service. US Pel/Trans was interpreted by radiologist. Findings: Normal uterus. Normal homogenous endometrial complex at 3 mm thickness. Normal follicular R ovary with positive doppler flow. Normal follicular L ovary with positive doppler flow. No acute abnormalities. UPDATE: stool cx pos for c. diff - attempted to contact pt however mailbox is not taking messages. Spoke w/ and relayed basic information but that she needs to call for details about the illness, medication, and follow-up care. She will be started on flagyl and advised to stop keflex as well as close f/u w/ PCP. Will fax to PCP when pt calls back as no PCP is listed. Will mail letter as well. siddhartha Jacksonrk, marcela. Course/Dx - Diagnoses Provider Diagnoses: Gastroenteritis, Dehydration
--- NOTE | 2016-10-07 19:16 | PN ---
Progress Note - Progress Note Date of Service: 10/05/16 Note: Called Dr. Nolan 3x with no response. Reached out to Dr. Cunha who performed surgery and made aware. He stated he will call the patient, inform Dr. Nolan and to discontinue keflex and just to start Flagyl for C. Diff. Evonne Bee PA-C
== END 2016-10-06 01:05 ==
LOC: ED 15:16
DX: R10.9 Unspecified abdominal pain (principal); R50.9 Fever, unspecified; R19.7 Diarrhea, unspecified; R51 Headache
CPT/HCPCS: 36415; 74176; 76830; 76856; 80048; 80076; 81003; 81015; 81025; 85025; 87040; 87045; 87046; 87480; 87491; 87493; 87510; 87591; 87661; 87899; 96374; 96375; 99284; A9270-GY; J0744; J1885; J2405

== ENCOUNTER 2019-05-22 13:34 | Emergency (ER) | payer OTHER ==
--- OUTSIDE RECORDS SUMMARY | 2019-05-22 13:51 | XMS REPORT | Continuity of Care Document ---
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 [phone] Problems Description No Information Available Social History Type Date Description Comments Sex Unknown Tobacco Use Start: Unknown Never Smoked Cigarettes Smoking Status Reviewed: 05/15/19 Never Smoked Cigarettes ETOH Use Rarely consumes alcohol Tobacco Use Start: Unknown End: Patient is a former smoker Quit at age 21 Unknown Enjoy Exercising Patient enjoys exercising Allergies, Adverse Reactions, Alerts Active Allergies Reaction Severity Comments Date Sulfa Drugs family hx of allergy no personal 05/25/2018 Medications Active Medications SIG Qnty Indications Ordering Provider Date Amoxicillin/Clavulana 1 tab by mouth 14tabs J01.00 Fitz Muñoz, 2019 te Potassium twice a day 875-125mg Tablets Mirena (52 MG) patient had Carrol Moseley FNP 05/25/2018 placed in aug 20mcg/24HR IUD 2017 History Medications Amoxicillin/Clavulanate 1 by mouth 20tabs J01.00 Jaron, 01/17/2019 - Potassium twice a SUSAN Nettles 05/15/2019 875-125mg Tablets day Immunizations Description No Information Available Vital Signs Date Vital Result Comment 05/15/2019 12:19pm BP Systolic 115 mmHg BP Diastolic 79 mmHg Body Temperature 98.7 F Heart Rate 76 /min Respiratory Rate 18 /min Height 64 inches 5'4" Weight 174.38 lb BMI (Body Mass Index) 29.9 kg/m2 BSA (Body Surface Area) 1.85 m2 Rodman body weight in kilograms 54 kg O2 % BldC Oximetry 98 % 01/17/2019 3:40pm BP Systolic 109 mmHg BP Diastolic 69 mmHg Body Temperature 98.7 F Heart Rate 81 /min Height 64 inches 5'4" Weight 176.12 lb BMI (Body Mass Index) 30.2 kg/m2 BSA (Body Surface Area) 1.85 m2 Rodman body weight in kilograms 54 kg O2 % BldC Oximetry 96 % Results Description No Information Available Procedures Description No Information Available Medical Devices Description No Information Available Encounters Type Date Location Provider Dx Diagnosis Office Visit 05/15/2019 Walk In [facility] Mariposa Jordan J01.00 Acute 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 12: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, unspecified Office Visit 01/17/2019 Walk In Clinic Giuseppe [email or web address] Acute maxillary 3:30p Miranda Byrne, SUSAN sinusitis, unspecified Assessments Date Code Description Provider 05/15/2019 J01.00 Acute maxillary sinusitis, Mariposa Jordan, SUSAN unspecified 01/17/2019 J01.00 Acute maxillary sinusitis, Miranda Salmeron, COMMUNICATION LECTURER unspecified Plan of Treatment 05/15/2019 - Mariposa Jordan FNPJ01.00 Acute maxillary sinusitis, unspecifiedNew Medication:Amoxicillin/Clavulanate Potassium 875-125 mg - 1 tab by mouth twice a dayComments:Use antibiotics as directed, start if no improvement by .Get lots of rest. Maintain good clear fluid intake to stay well hydrated. Frequent handwashing to prevent spread of germs. Please avoidexposure to tobacco smoke and/or polluted air. You can use OTC cough and cold medications to help with symptoms if needed. Consider flonase as discussed. Take Tylenol (acetaminophen), Advil(ibuprofen), or alleve(naproxen) as needed for fever or aches, dosage according to package directions. Pleasefollow-up with your primary care provider within 1 week for recheck. Functional Status Description No Information Available Mental Status Description No Information Available Referrals Description No Information Available
[2019-05-22 14:22] VITALS: BP 105/56
--- NOTE | 2019-05-22 14:45 | UC ---
Hand/Wrist HPI - HPI Summary HPI Summary: 28yo female presenting with right hand and forearm pain x 36hours after she states she fell on ice and caught herself with her hand. Notes "everything feels tender." Also notes "thumb pain." Denies obvious swell or bruising. Denies decreased ROM and strength. Denies numbness and tingling. 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 so "wants to make sure its not broken or sprained." - History Of Current Complaint Chief Complaint: UCUpperExtremity Stated Complaint: RT WRIST INJURY Hx Obtained From: Patient Hx Last Menstrual Period: Mirena Pain Intensity: 4 Pain Scale Used: 0-10 Numeric - Allergies/Home Medications Allergies/Adverse Reactions: Allergies Allergy/AdvReac Type Severity Reaction Status Date / Time Sulfa (Sulfonamide Allergy See Comment Verified 05/22/19 14:23 Antibiotics) Home Medications: Home Medications NK [No Home Medications Reported] 05/22/19 [History Confirmed 05/22/19] PMH/Surg Hx/FS Hx/Imm Hx Other History Of: Negative For: Anticoagulant Therapy - Surgical History Surgical History: Yes Surgery Procedure, Year, and Place: appendectomy - Family History Known Family History: Negative: Cardiac Disease - Social History Alcohol Use: Rare Substance Use Type: None Smoking Status (MU): Former Smoker Length of Time of Smoking/Using Tobacco: 2 years Have You Smoked in the Last Year: No - Immunization History Most Recent Influenza Vaccination: declined Most Recent Tetanus Shot: 02/04/16 Most Recent Pneumonia Vaccination: unknown Review of Systems All Other Systems Reviewed And Are Negative: No Constitutional: Positive: Negative Skin: Positive: Negative Respiratory: Positive: Negative Cardiovascular: Positive: Negative Neurovascular: Positive: Negative Musculoskeletal: Positive: Arthralgia - right forearm and hand. Negative: Decreased ROM, Edema Neurological/Mental Status: Positive: Negative. Negative: Paresthesia, Numbness Physical Exam - Summary Physical Exam Summary: Vital Signs Reviewed: Yes A+Ox3, no distress Eyes: Conjunctiva Clear ENT: Hearing grossly normal neck: supple Respiratory: Positive: No respiratory distress, No accessory muscle use Cardiovascular: skin color reflect adequate perfusion Musculoskeletal Exam: +diffuse TTP of right forearm, wrist and hand, +mild snuffbox tenderness, no edema, no erythema or ecchymosis, ROM intact, strong radial pulses, sensation grossly intact Neurological: Positive: Alert, ambulatory without difficulty Psychological: Positive: age appropriate behavior Skin: Positive: no rash, no ecchymosis Vital Signs: Initial Vital Signs Temp 97.8 F 05/22/19 14:17 Pulse 77 05/22/19 14:17 Resp 14 05/22/19 14:17 BP 105/56 05/22/19 14:17 Pulse Ox 100 05/22/19 14:17 Diagnostics - Radiology right hand Radiology Interpretation Completed By: Radiologist Summary of Radiographic Findings: IMPRESSION: No fracture of the right hand is noted. right forearm Radiology Interpretation Completed By: Radiologist Summary of Radiographic Findings: IMPRESSION: No fracture of the right forearm is noted. Hand/Wrist Course/Dx - Course Course Of Treatment: Discussed negative radiographs with patient. Educated on sprains and symptomatic treatment. Instructed to follow up with ortho if symptoms persist. Patient voiced understanding and agreed with treatment plan. - Differential Dx/Diagnosis Differential Diagnosis/HQI/PQRI: Contusion, Fracture, Sprain, Strain Provider Diagnosis: Sprain of wrist, right, Sprain of hand, right Discharge ED - Sign-Out/Discharge Documenting (check all that apply): Patient Departure All imaging exams completed and their final reports reviewed: Yes - Discharge Plan Condition: Stable Disposition: HOME Patient Education Materials: Hand Sprain (ED), Wrist Sprain (ED) Referrals: Carrol Moseley NP [Primary Care Provider] - If Needed [facility] [Outside] - If Needed Additional Instructions: As discussed, your xrays did not show any fractures. Rest, ice, elevate, and use the wrist splint to help alleviate pain and swelling. Use over the counter pain medications as directed for pain relief. Refrain from strenuous physical activity until pain has fully resolved. Follow up with the orthopedic referral listed below if symptoms do not improve within 2 weeks. - Billing Disposition and Condition Condition: STABLE Disposition: Home - Attestation Statements Provider Attestation: I was available for consult. This patient was seen by the SAMIR. The patient was not presented to, seen by, or examined by me. -Oscar
== END 2019-05-22 15:40 | disposition home or self-care (01) ==
LOC: UCCORT 13:34
DX: S63.91XA Sprain of unspecified part of right wrist and hand, initial encounter (principal); W00.0XXA Fall on same level due to ice and snow, initial encounter; Y92.9 Unspecified place or not applicable; Z88.2 Allergy status to sulfonamides; Z87.891 Personal history of nicotine dependence
CPT/HCPCS: 99212; G0463

== ENCOUNTER 2022-12-24 08:34 | Inpatient (IN) ==
[2022-12-24] MEDS ORDERED: Promethazine INJ(RESTRICTED) 25 MG/ML 1 ml VIAL IV PRN (10:06)
[2022-12-24] MEDS ORDERED: Lactated Ringers 1000 ml BAG 1,000 ML IV ONE ×2 (10:06→21:15)
[2022-12-24] MEDS ORDERED: Buffered Lidocaine 1% SYRIN 1 ml INTRADERM ONE (10:06)
[2022-12-24] MEDS ORDERED: Lidocaine 1% VIAL 10 MG/ML 30 ML VIAL INJ PRN (10:06)
[2022-12-24] MEDS ORDERED: Oxytocin in LR 20,000 MILLI.UNIT/1,000 ML BAG IV SCH (10:10)
[2022-12-24] MEDS ORDERED: Lactated Ringers 1000 ml BAG 1,000 ML IV SCH ×2 (11:00→22:00)
[2022-12-24 11:07] LABS: ABS Lymphocytes 1.6 10^3/uL (1.0-4.8); ABS Monocytes 0.4 10^3/uL (0.0-0.9); ABS Neutrophils 7.5 10^3/uL (1.5-7.6); ABS Nucleated RBC 0.01 10^3/ul; Eosinophil % 0.5 %; Hematocrit 33.7 % (35-45); Hemoglobin 11.5 g/dL (11.5-14.3); Lymphocyte % 16.9 %; Mean Corpuscular Hemoglobin 28.2 pg (27-33); Mean Corpuscular Hgb Conc 34.3 g/dL (31-36); Mean Corpuscular Volume 82.4 fL (80-97); Mean Platelet Volume 9.5 fL (7.5-11.2); Nucleated Red Blood Cells % 0.1 /100 WBC (0.0-0.4); Platelet Count 193 10^3/uL (150-450); Red Blood Count 4.09 10^6/uL (3.63-4.92); Red Cell Distribution Width 13.4 % (12-17); White Blood Count 9.6 10^3/uL (3.8-11.8)
[2022-12-24 13:54] LABS: Urine Benzodiazepine Screen None Detected (None Detect); Urine Cannabinoids Screen None Detected (None Detect); Urine Opiates Screen None Detected (None Detect)
[2022-12-24] MEDS ORDERED: fentaNYL 100 mcg/2 ml 50 MCG/ML VIAL IV SLOW PU PRN (19:28)
[2022-12-24] MEDS ORDERED: Ondansetron 4 mg VIAL 2 MG/ML 2 ml VIAL IV PRN (19:29)
[2022-12-24] MEDS ORDERED: OBEPIDURAL (200 ML) 200 ML EPIDURAL ONE (19:44)
[2022-12-24] MEDS ORDERED: Lidocaine 1.5% EPI 1:200,000 30 ML SDV ONE ×2 (19:44→20:43)
[2022-12-24] MEDS ORDERED: Sodium Citrate/Citric Acid LIQ 15 ML UDC PO PRN (21:15)
[2022-12-24] MEDS ORDERED: OBEPIDURAL (200 ML) 200 ML EPIDURAL SCH (22:00)
[2022-12-24 22:28] LABS: Urine Appearance Cloudy; Urine Bilirubin Negative (Negative); Urine Blood 1+ (Negative); Urine Color Yellow; Urine Glucose Negative (Negative); Urine Ketones Trace (Negative); Urine Nitrite Negative (Negative); Urine Protein Negative (Negative); Urine Specific Gravity 1.015 (1.002-1.030); Urine Urobilinogen Negative (Negative)
[2022-12-24 22:30] LABS: Urine Amorphous Crystals Present (Absent); Urine Bacteria Absent (Absent); Urine Red Blood Cell 3+(>10/hpf) (Absent); Urine Squamous Epithelial Cell Present (Absent); Urine White Blood Cell Trace(0-5/hpf) (Absent)
[2022-12-25] MEDS ORDERED: Dibucaine 1% OINT 28.35 GM TUBE PR PRN (00:24)
[2022-12-25] MEDS ORDERED: Glycerin ADULT 2.4 gm SUPP PR PRN (00:24)
[2022-12-25] MEDS ORDERED: Witch Hazel PAD JAR TOPICAL PRN (00:24)
[2022-12-25] MEDS ORDERED: Lactated Ringers 1000 ml BAG 1,000 ML IV SCH (01:00)
[2022-12-25 09:02] LABS: ABS Lymphocytes 1.8 10^3/uL (1.0-4.8); ABS Monocytes 0.6 10^3/uL (0.0-0.9); ABS Neutrophils 13.2 10^3/uL (1.5-7.6); ABS Nucleated RBC 0.01 10^3/ul; Hematocrit 30.6 % (35-45); Hemoglobin 10.5 g/dL (11.5-14.3); Lymphocyte % 11.3 %; Mean Corpuscular Hemoglobin 28.3 pg (27-33); Mean Corpuscular Hgb Conc 34.4 g/dL (31-36); Mean Corpuscular Volume 82.1 fL (80-97); Mean Platelet Volume 9.4 fL (7.5-11.2); Nucleated Red Blood Cells % 0.1 /100 WBC (0.0-0.4); Platelet Count 177 10^3/uL (150-450); Red Blood Count 3.73 10^6/uL (3.63-4.92); Red Cell Distribution Width 13.2 % (12-17); White Blood Count 15.6 10^3/uL (3.8-11.8)
[2022-12-26 08:52] VITALS: BP 120/66
[2022-12-26] MEDS ORDERED: Butalb/Acetamin/Caff TAB 325-50-40MG PO ONE (11:16)
== END 2022-12-26 12:30 | disposition home or self-care (01) | DRG 560 ==
LOC: MCHOBOUT 08:34 → MCHOB 09:29
PROVIDERS: ADMIT Advanced Practice Midwife; ATTEND Advanced Practice Midwife